=== PATIENT | male | born 2000 | race Caucasian/White ===

== ENCOUNTER 2020-07-31 22:49 | Emergency (ER) | payer SELFPAY ==
[~2020-07-31] VITALS: Ht 167.6 cm; Wt 66.9 kg
[2020-07-31 23:14] VITALS: BP 133/83
[2020-07-31] MEDS ORDERED: FAMO-135 MT (23:22)
== END 2020-08-01 02:32 | disposition left against medical advice (07) ==
LOC: ER 23:27
DX: R10.9 Unspecified abdominal pain (principal); Z53.21 Procedure and treatment not carried out due to patient leaving prior to being seen by health care provider